=== PATIENT | male | born 1960 | race Caucasian/White ===

== ENCOUNTER → 2018-03-06 | Outpatient (REF) | payer BC, OTHER | LOC: M LAB REF 19:12 | DX: I87.311 Chronic venous hypertension (idiopathic) with ulcer of right lower extremity (principal); L30.9 Dermatitis, unspecified | CPT/HCPCS: 88305 ==

== ENCOUNTER → 2018-03-19 | Outpatient (CLI) | payer OTHER | LOC: M RAD 13:28 | DX: I87.311 Chronic venous hypertension (idiopathic) with ulcer of right lower extremity (principal); L97.919 Non-pressure chronic ulcer of unspecified part of right lower leg with unspecified severity | CPT/HCPCS: 93971 ==